=== PATIENT | male | born 1950 | race Caucasian/White ===

== ENCOUNTER → 2023-02-03 | Outpatient (CLI) | payer OTHER ==
--- NOTE | 2023-02-03 14:46 | Diagnostic Imaging Report ---
PROCEDURE: CT neck soft tissue without contrast. TECHNIQUE: Multiple contiguous axial images were obtained through the neck without the use of intravenous contrast. Auto Exposure Controls were utilized during the CT exam to meet ALARA standards for radiation dose reduction. INDICATION: Bilateral cervical lymphadenopathy. COMPARISON: None available. FINDINGS: There are no enlarged cervical lymph nodes on either side. The right submandibular gland is markedly atrophic or surgically absent. Left submandibular gland is normal in appearance. The parotid glands are normal. There is a 1.5 x 1.1 cm right thyroid nodule. Degenerative straightening of the cervical spine is present. Advanced degenerative disc disease at C5-C6 is noted. Lung apices are clear. Airway is widely patent. No space-occupying mass or hydrocephalus within the visualized aspects of the brain. Paranasal sinuses and mastoid air cells are clear where visualized. IMPRESSION: 1. No cervical lymphadenopathy. 2. 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 3. Right-sided thyroid nodule is indeterminate. Follow-up thyroid ultrasound could be performed for further assessment. Dictated by: Dictated on workstation # [id number]
== END ==
LOC: RAD 11:09
PROVIDERS: ATTEND Nurse Practitioner
DX: Z01.89 Encounter for other specified special examinations (principal); R59.1 Generalized enlarged lymph nodes
CPT/HCPCS: 70490